=== PATIENT | female | born 1950 | race American Indian/Alaskan Native ===

== ENCOUNTER 2017-02-09 14:29 | Outpatient (CLI) | payer MEDICARE, MEDICAID ==
--- NOTE | 2017-02-09 15:35 | Mammography Report ---
BONE DENSITY STUDY: DEFINITIONS: BMD = Bone Mineral Density T-score = BMD related to mean peak bone mass of young adult (mean expressed in Standard Deviation) Z-score = Age matched BMD expressed in SD World Health Organization (WHO) Diagnostic Criteria Normal T-score > -1 SD Osteopenia T-score between -1 and -2.4 SD Osteoporosis T-score -2.5 SD or below FINDINGS: The weighted average BMD of lumbar spine L1-L4 is 0.988 with a T-score of -0.5. The weighted average BMD of the left hip is 0.88 with a T-score of 0.5. The femoral neck BMD is 0.692 with a T. value score of -1.4 IMPRESSION: The patient's average T-score is diagnostic for normal bone density and low relative risk for fracture. NOTE: BMD is not the only risk factor for fracture; also consider factors such as the patient's age, risk of falling, previous osteoporotic fracture, family history of osteoporotic fractures, current smoker, and low body weight. Thorpe's triangle is a region of interest in femur, predominantly of trabecular bone. It is not a true anatomic site, and [facility] does not recommend its use clinically.
== END 2017-02-09 14:30 | disposition home or self-care (01) ==
LOC: MAMMO 14:29
PROVIDERS: ATTEND Internal Medicine
DX: Z13.820 Encounter for screening for osteoporosis (principal)
CPT/HCPCS: 77080

== ENCOUNTER 2017-08-01 10:05 | Outpatient (CLI) | payer MEDICARE, MEDICAID ==
--- NOTE | 2017-08-01 11:55 | Mammography Report ---
Screening mammogram: Right breast cancer with partial lumpectomy and radiation therapy. Comparison made to prior studies dating back to 2015. The intermediate fibroglandular density pattern in the left breast with no significant findings or interval change. Lumpectomy changes with diminished breast body and seen on the right. The fibroglandular density is somewhat denser than the left breast but decreased in density compared to prior right breast images in 2015 and 2016. No currently suspicious findings. CAD used. Impressions: Generally stable breast pattern with no suspicious findings. Recommendation: Annual mammogram followup. BI-RADS CATEGORY: 2 = Benign ACR BI-RADS MAMMOGRAPHIC CODES: 0 = Needs additional imaging evaluation; 1 = Negative; 2 = Benign; 3 = Probably benign; 4 = Suspicious; 5 = Malignant; 6 = Known biopsy-proven malignancy COMMENT: 1. Dense breast tissue, i.e., adenosis, fibrocystic changes, etc., may obscure an underlying neoplasm. 2. Approximately 10% of cancers are not detected with mammography. 3. A negative mammography report should not delay biopsy if a clinically suspicious mass is present.
== END 2017-08-01 10:06 | disposition home or self-care (01) ==
LOC: MAMMO 10:05
PROVIDERS: ATTEND Internal Medicine
DX: Z12.31 Encounter for screening mammogram for malignant neoplasm of breast (principal); Z85.3 Personal history of malignant neoplasm of breast; Z98.890 Other specified postprocedural states
CPT/HCPCS: 77067; G0202

== ENCOUNTER 2019-05-02 14:28 | Outpatient (CLI) | payer MEDICARE ==
--- NOTE | 2019-05-02 15:06 | XRay Report ---
RIGHT WRIST, 4 VIEWS INDICATION: M25.531, PAIN IN RIGHT WRIST. COMPARISON: None. IMPRESSION: No acute osseous or soft tissue abnormality. No significant DJD. Mild osteopenia is s uspected. Signer Name: Bal Storm Jr, MD Signed: 05/02/2019 3:01 PM Workstation Name: [id number]
== END 2019-05-02 14:29 | disposition home or self-care (01) ==
LOC: XRAY 14:28
PROVIDERS: ATTEND Internal Medicine
DX: M25.531 Pain in right wrist (principal)

== ENCOUNTER 2020-05-28 12:21 | Outpatient (CLI) | payer MEDICARE ==
--- NOTE | 2020-05-28 16:40 | Ultrasound Report ---
BILATERAL DIGITAL DIAGNOSTIC MAMMOGRAM WITH CAD WITHOUT TOMOSYNTHESIS 05/28/2020 LEFT LIMITED BREAST ULTRASOUND INDICATION: RT BREAST PAIN, personal history right breast cancer with partial mastectomy TECHNIQUE: Digital bilateral mammographic imaging was performed. Spot compression and magnification views were obtained. Limited ultrasound was performed. This examination was interpreted with the bene fit of Computer-Aided Detection (CAD) analysis. COMPARISON: Bilateral mammogram 08/01/2017 Breast Density: There are scattered areas of fibroglandular density. FINDINGS: MAMMOGRAPHIC FINDINGS: Right surgical changes are seen. Scar appears stable. Not directly associated with the scar, a somewhat linearly arranged area of regional new calcifications is seen. On magnifica tion views, these calcifications remain indeterminate. These are most prominent anteriorly. In the le ft breast, a new irregular mildly spiculated density is seen in the upper outer quadrant posterior de pth. ULTRASOUND FINDINGS: Targeted ultrasound evaluation was performed of the area of interest. Evaluation of the area of density in the upper outer left breast shows a 6 mm ovoid ill-defined area of hypoech ogenicity with associated vascularity and moderate shadowing in the 1:30 position, 8 cm from the nipp le. This corresponds to the new radiographic abnormality. Incidental note is made of a small benign-a ppearing intramammary lymph node at 1:00. No other significant lesions are seen. IMPRESSION: 1. Area of new regional indeterminate microcalcifications in the right breast as above. Recommend mann reotactic biopsy. 2. New spiculated density with irregular shadowing sonographic correlate in the upper outer left [address]. Recommend ultrasound-guided biopsy. Follow up recommendation: See above BI-RADS Category 5: Highly Suggestive of Malignancy. A "normal" or negative report should not discourage follow up or biopsy of a clinically significant f inding. A written summary of these findings will be mailed to the patient. The patient will be entered into a mammography reporting system which will generate a reminder letter for the patient's next appointmen t at the appropriate interval. According to the [employer], yearly mammograms are recommended starting at age 40 and continuing as long as a woman is in good health. Breast MRI is recommended for women with an tasha roximately 20-25% or greater lifetime risk of breast cancer, including women with a strong family his tory of breast or ovarian cancer and women who have been treated for Hodgkin's disease. Signer Name: Bertram Stark MD Signed: 05/28/2020 4:35 PM Workstation Name: [email or web address]
== END 2020-05-28 12:22 | disposition home or self-care (01) ==
LOC: MAMMO 12:21
PROVIDERS: ATTEND Internal Medicine
DX: R92.0 Mammographic microcalcification found on diagnostic imaging of breast (principal); Z98.890 Other specified postprocedural states; Z85.3 Personal history of malignant neoplasm of breast
CPT/HCPCS: 77066

== ENCOUNTER 2020-06-18 08:03 | Outpatient (CLI) | payer MEDICARE ==
--- NOTE | 2020-06-18 12:33 | Ultrasound Report ---
ULTRASOUND-GUIDED CORE NEEDLE BIOPSY Left BREAST WITH CLIP PLACEMENT INDICATION: Left breast mass at the 1:30 position. COMPARISON: 05/28/2020 FINDINGS: Informed consent was obtained. Mass in the left breast at the 1:30 position, 8 cm from the nipple, wa s identified with ultrasound. The overlying skin was cleansed with Betadine and local anesthesia was obtained with a 1% lidocaine solution. Under ultrasound guidance a 14-gauge spring loaded core biopsy needle was advanced to the lesion. A total of 5 core samples were obtained. A U-shaped biopsy marker was placed to guera the site of the biopsy. Specimen samples were placed in formalin and sent to [facility] for analysis. Patient tolerated the procedure well and no immediate complications were identified. A post procedure mammogram demonstrates accurate placement of the biopsy marker. IMPRESSION: Technically successful ultrasound guided biopsy of left breast mass at the 1:30 position with accurat e placement of a biopsy marker. An addendum will be added to this report at a later date with the pathology results. NOTE: Stereotactic biopsy of RIGHT breast calcifications was recommended on 05/28/2020 exam. Signer Name: Adarsh Inman MD Signed: 06/18/2020 12:29 PM Workstation Name: [id number]
--- NOTE | 2020-06-18 12:34 | Mammography Report ---
LEFT DIAGNOSTIC MAMMOGRAM INDICATION: Left breast mass biopsy COMPARISON: 05/28/2020. FINDINGS: Left CC and ML views were obtained. These show placement of U shaped marker in the previous ly noted mass in the left breast at the 1:30 position. IMPRESSION: Mammographic images document accurate location of a U shaped biopsy marker in the recently biopsied l eft breast mass at the 1:30 position. BI-RADS Category 4: Suspicious for Malignancy. Signer Name: Adarsh Inman MD Signed: 06/18/2020 12:30 PM Workstation Name: [id number]
== END 2020-06-18 08:04 | disposition home or self-care (01) ==
LOC: SPVWC 08:03
PROVIDERS: ATTEND Internal Medicine
DX: N63.11 Unspecified lump in the right breast, upper outer quadrant (principal); R92.8 Other abnormal and inconclusive findings on diagnostic imaging of breast; G40.909 Epilepsy, unspecified, not intractable, without status epilepticus; F20.9 Schizophrenia, unspecified; Z17.0 Estrogen receptor positive status [ER+]; Z88.2 Allergy status to sulfonamides; Z79.899 Other long term (current) drug therapy
CPT/HCPCS: 88305; 88341; 88342

== ENCOUNTER 2020-07-02 11:53 | Outpatient (CLI) | payer MEDICARE ==
--- NOTE | 2020-07-02 16:46 | Mammography Report ---
PERCUTANEOUS STEREOTACTIC-GUIDED RIGHT BREAST BIOPSY WITH MARKER PLACEMENT HISTORY: Right breast calcifications CONSENT: Technique, risks and alternatives were discussed with the patient and informed written conse nt obtained. PROCEDURE: The patient was placed in the prone position on the Siemens biopsy table. The calcifications at the 1 :00 position in the right breast were targeted mammographically. Director Integrated and stereo pair images were ac quired to generate the computer-derived coordinates for targeting. The skin overlying the chosen biop sy site was cleansed with Betadine. The skin and superficial soft tissues were anesthetized with a s mall amount of buffered 1% lidocaine. The deeper soft tissues were anesthetized with buffered 1% lid ocaine with epinephrine. A small dermatotomy was created through which the Atec biopsy device was placed. Pre and post fire st ereo pair images were acquired to confirm appropriate needle trajectory. Using vacuum assistance, mul tiple core specimen samples were acquired. A post procedure stereo pair image suggested adequate samp ling of the target. A post procedure specimen radiograph confirmed calcifications within core specime n samples. A biopsy marker was deposited at the biopsy site, and appropriate biopsy marker depositio n confirmed via a stereo pair image. Manual pressure was applied at the biopsy site to achieve hemostasis. The incision margins were appro ximated with Steri-Strips. Postprocedure care instructions were administered in both verbal and writt en forms. The patient voiced understanding and departed the [facility] in stable, satisfactory con dition. IMPRESSION Technically successful percutaneous stereotactic-guided right breast biopsy with marker placement. An addendum will be added to this report once pathology results are available. Signer Name: Adarsh Inman MD Signed: 07/02/2020 4:41 PM Workstation Name: [id number]
--- NOTE | 2020-07-02 16:47 | Mammography Report ---
RIGHT DIAGNOSTIC MAMMOGRAM INDICATION: Stereotactic biopsy of right breast calcifications. COMPARISON: 05/28/2020. FINDINGS: Right CC and LM mammograms were obtained. These document the accurate location of a biopsy marker at the site of recent stereotactic biopsy of right 1:00 breast calcifications. IMPRESSION: Mammographic images document accurate location of biopsy marker at the site of right breast stereotac tic biopsy. BI-RADS Category 4: Suspicious for Malignancy. Signer Name: Adarsh Inman MD Signed: 07/02/2020 4:43 PM Workstation Name: [id number]
== END 2020-07-02 11:54 | disposition home or self-care (01) ==
LOC: SPVWC 11:53
PROVIDERS: ATTEND Internal Medicine
DX: R92.1 Mammographic calcification found on diagnostic imaging of breast (principal); R92.8 Other abnormal and inconclusive findings on diagnostic imaging of breast; D05.11 Intraductal carcinoma in situ of right breast; G40.909 Epilepsy, unspecified, not intractable, without status epilepticus; F20.9 Schizophrenia, unspecified; Z17.0 Estrogen receptor positive status [ER+]; Z88.2 Allergy status to sulfonamides; Z79.899 Other long term (current) drug therapy
CPT/HCPCS: 19081; 77065; 88305; A4648